=== PATIENT | male | born 1965 | race Caucasian/White ===

== ENCOUNTER 2025-02-12 10:07 | Emergency (ER) | payer SELFPAY ==
[~2025-02-12] VITALS: Ht 170.2 cm; Wt 77.0 kg
[2025-02-12 10:13] VITALS: O2SAT 99
[2025-02-12] MEDS: LAMOTRIGINE 150MG TABLET PO SCH (10:34)
[2025-02-12] MEDS: LEVETIRACETAM 500MG PREMIX 100 ML IV ONE (10:34)
[2025-02-12] MEDS: ACETAMINOPHEN 325MG TABLET PO SCH (10:50)
[2025-02-12] MEDS ORDERED: LAMO150T5 MT (15:03)
[2025-02-12 15:22] VITALS: BP 104/64; PULSE 76; RESP 18; TEMP 37.1; O2SAT 95
== END 2025-02-12 15:24 | disposition home or self-care (01) ==
LOC: ER 10:07
DX: G40.409 Other generalized epilepsy and epileptic syndromes, not intractable, without status epilepticus (principal); I10 Essential (primary) hypertension; E78.00 Pure hypercholesterolemia, unspecified; Z79.899 Other long term (current) drug therapy; Z91.148 Patient's other noncompliance with medication regimen for other reason
CPT/HCPCS: 96374; 99285; J1953; Z7610; A4606